=== PATIENT | female | born 1980 | race Two or more races ===

== ENCOUNTER 2025-01-09 04:34 | Emergency (ER) | payer BC ==
[~2025-01-09] VITALS: Ht 154.9 cm; Wt 68.0 kg
[2025-01-09] MEDS ORDERED: METOCLOPRAMIDE HCL 5 MG/ML VIAL IM STA (04:45)
[2025-01-09] MEDS ORDERED: PROMETHAZINE HCL 50 MG/ML AMPUL IM STA (04:46)
[2025-01-09] MEDS ORDERED: 0.9 % SODIUM CHLORIDE 1,000 ML IV STA (04:47)
[2025-01-09] MEDS ORDERED: FAMOtidine 10 MG/ML (4ML VIAL) IV PUSH STA (04:47)
[2025-01-09 05:11] LABS: HEMATOCRIT 37.3 % (36.0-45.00); HEMOGLOBIN 12.2 g/dL (12.0-15.00); MEAN CELL VOLUME 84.3 fL (80.00-100.00); MEAN CORPUSCULAR HEMOGLOBIN 27.5 pg (27.00-32.0); MEAN CORPUSCULAR HGB CONC 32.6 g/dl (32.0-36.0); PLATELET COUNT 225 K/uL (150-450); RED BLOOD COUNT 4.42 M/uL (4.00-6.00); RED CELL DISTRIBUTION WIDTH 14.8 % (11.5-14.5)
[2025-01-09 05:40] LABS: BILIRUBIN TOTAL 0.58 mg/dL (0.3-1.2); CALCIUM 9.3 mg/dL (8.5-10.1); CREATININE SERUM 0.96 mg/dL (0.55-1.02); GFR 63.74; GLOBULINA 4.2 G/DL (2.4-3.5); POTASSIUM 3.89 mEq/L (3.5-5.1); TOTAL PROTEIN 8.2 gm/dL (6.4-8.2)
== END 2025-01-09 06:52 | disposition home or self-care (01) ==
LOC: ER 04:34
DX: K29.70 Gastritis, unspecified, without bleeding (principal); R11.10 Vomiting, unspecified